=== PATIENT | male | born 1965 | race Caucasian/White ===

== ENCOUNTER → 2023-04-11 13:39 | Outpatient (CLI) | payer OTHER, SELFPAY ==
--- NOTE | ~2023-04-11 | MR_ITS ---
EXAMINATION: MR foot LT wo con DATE: 04/11/2023 14:19 INDICATION: Ganglion cyst of left foot. TECHNIQUE: Magnetic resonance imaging (MRI) of the left foot was performed without intravenous contra st. COMPARISON: None FINDINGS: Bone alignment is normal. No fracture. There is moderate osteoarthritis of first tarsometat arsal joint and first metatarsophalangeal joint and mild osteoarthritis of some of the interphalangea l joints. Lisfranc ligament is normal. The flexor and extensor tendons are normal. Between the first and second metatarsophalangeal joints dorsally, there is a 11 x 7 x 20 mm ganglion cyst. This cyst li angela arises from a partial tear of lateral collateral ligament of first metatarsophalangeal joint at its proximal attachment. IMPRESSION: 1. 11 x 7 x 20 mm ganglion cyst between first and second metatarsophalangeal joints dorsally. 2. Polyarticular osteoarthritis. Reviewed, dictated and finalized at location A. IMPRESSION: 1. 11 x 7 x 20 mm ganglion cyst between first and second metatarsophalangeal jono ints dorsally. 2. Polyarticular osteoarthritis.
== END ==
DX: M67.472 Ganglion, left ankle and foot (principal); M19.072 Primary osteoarthritis, left ankle and foot
CPT/HCPCS: 73718